=== PATIENT | female | born 1940 | race Caucasian/White ===

== ENCOUNTER 2018-08-18 07:55 | Day surgery (SDC) | payer MEDICARE, OTHER ==
[~2018-08-18] VITALS: Ht 162.6 cm; Wt 90.7 kg
[~2018-08-18 07:55] MED LIST: ALENDRONATE SOD70 MG PO; AMBIEN5 MG PO; ASPIR 8181 MG PO; ATENOLOL25 MG PO; CENTRUM SILVER1 EAC5 PO; CILOSTAZOL100 MG PO; EFFEXOR XR75 MG PO; FENOFIBRATE160 MG PO; GARLIC1000 MG PO; HYDROCHLOROTHIA25 MG PO; HYDROCODON-ACE1 EA11 PO; LIPITOR40 MG PO; MELOXICAM15 MG PO; MIRALAX17 GM PO; OXYCODONE HCL5 MG PO; PRAVASTATIN SOD40 MG PO; VITAMIN D35000 UNIT PO; XARELTO10 MG PO; ZOLPIDEM TARTRAT5 MG PO
[2018-08-18] MEDS ORDERED: VITAMIN B122500 MCG PO (08:11)
--- NOTE | 2018-08-18 10:03 | NUR ---
08/18/18 Leigha3 Atiya Wood PT TO PACU SLEEPY BUT MOVING AROUND IN BED SHE IS COUGHING AND DEEP BREATHING O2 AT 6L ON MASK
--- NOTE | 2018-08-18 10:30 | NUR ---
PT ARRIVES TO DS RM 3 FROM PACU AWAKE AND ALERT, A&O X3. PT RESP EVEN AND UNLABORED, SATS ABOVE 94% ON RA. PT DENIES ANY PAIN OR NAUSEA. SCD'S IN PLACE, CALL LIGHT WITHIN REACH. PT PROVIDED ICED WATER.
--- NOTE | 2018-08-18 12:10 | NUR ---
1130: PT HAS URGE TO VOID. WITH RN IN PT RM, PT SITS AT SIDE OF BED PRIOR TO STANDING, DENIES NAUSEA OR DIZZINESS. PT AMBULATES WITH STEADY GAIT TO BATHROOM WITH RN ASSIST. PT ABLE TO VOID 450 MLS YELLOW URINE WITH NO PROBLEMS. PT BACK TO RM AND REQUESTS TO GET DRESSED, PT DRESSES SELF. DC INSTRUCTIONS PRESENTED TO PT, ALL QUESTIONS ADDRESSED. PT CALLS FRIEND FOR RIDE HOME AND DC'S FROM RM 3 TO HOME.
--- NOTE | 2018-08-22 08:05 | OR ---
[facility] [address], [place] [address] Signed DATE OF OPERATION: 08/18/2018 SURGEON: Angelo De Paz MD PREOPERATIVE DIAGNOSIS: Right scapular subcutaneous mass (15 cm). POSTOPERATIVE DIAGNOSIS: Right scapular subcutaneous mass (15 cm). PROCEDURE PERFORMED: Excision of right scapular subcutaneous mass. ESTIMATED BLOOD LOSS: None. INDICATIONS: Jennifer is a 77-year-old female with known hypertension and peripheral arterial disease. She had been a [employer] whole life and has worked very hard. In the last year or so, she has developed mass underneath the skin over the right scapula and bra line. She said it is unbelievably how quickly it has increased in size. She said, on exam, it was up to 15 cm in diameter. It was very easy to see this underneath her shirt. In fact, her friends have been asking about her it as well. She said it is painful and it is hard to wear her bra, and every time she moves her scapula, it is causing her pain. Consequently, she was asked to come to see me and have it removed. In the office, I explained to Suzie this simply was too large to remove under local anesthetic. Consequently, we will do it over in operating room under anesthesia. I explained her the nature of the incision required to remove the lesion and we will remove it circumferentially and send it off to Pathology Department for definitive diagnosis. She understands the nature of the surgery along with its expected intraop and postop course. There is risk to surgery including, but not limited to bleeding, infection, scarring, change in contour of the skin, as well as recurrent masses in the same or other locations. She expressed understanding and wished to proceed. PROCEDURE NOTE: I met with Suzie in her preop area. We both agreed on the mass and marked that appropriately. She was then taken in the operating room and placed in the prone position with appropriate padding and monitoring under general endotracheal tube anesthesia. She was given preoperative antibiotics along with subcutaneous heparin. SCDs were utilized. She was then prepped and draped in the usual sterile fashion. A Electronically Signed By: ANGELO DE PAZ MD 08/22/18 0805 PATIENT NAME: JENNIFER KENT OPERATIVE REPORT DATE OF : 42 REPORT #: [id number] PHYSICIAN: ANGELO DE PAZ MD PCP: JUANCARLOS TURNER DO REPORT IS CONFIDENTIAL AND NOT TO BE RELEASED WITHOUT AUTHORIZATION [facility] [address], [place] [address] Signed standard transverse incision was made over the lesion and carried down around the lesion with the help of the cautery. The entire lesion was circumscribed and peeled off the underlying muscle. 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 We injected local anesthetic into the muscle as well as subcutaneous tissues. The wound was irrigated and suctioned out until clear. The dermis was reapproximated with interrupted 3-0 subcuticular Monocryl sutures. The skin edges were reapproximated with a running 6-0 fast absorbing plain gut suture. Dry gauze and tape were then applied. Suzie was then rotated into the supine position, weaned from anesthesia, extubated in the OR, and taken to recovery room in stable condition. MD NEVAEH Cardona/MODL /[id number] cc: MD Angelo Espinoza MD Frank E Szumski, DO Copies: CATALINA VEGAS MD, ANDREW L MD SZUMSKI, FRANK E DO ~ Electronically Signed By: ANGELO DE PAZ MD 08/22/18 0805 PATIENT NAME: JENNIFER KENT OPERATIVE REPORT DATE OF : 42 REPORT #: [id number] PHYSICIAN: ANGELO DE PAZ MD PCP: JUANCARLOS TURNER DO REPORT IS CONFIDENTIAL AND NOT TO BE RELEASED WITHOUT AUTHORIZATION
== END 2018-08-18 12:05 | disposition home or self-care (01) ==
LOC: DS 07:55
PROVIDERS: Colon & Rectal Surgery
PROC: 0KBF0ZZ Excision of Right Trunk Muscle, Open Approach (ICD-10-PCS; principal; 2018-08-18 08:45)
DX: L98.8 Other specified disorders of the skin and subcutaneous tissue (principal); I10 Essential (primary) hypertension; E66.9 Obesity, unspecified; F41.9 Anxiety disorder, unspecified; I25.10 Atherosclerotic heart disease of native coronary artery without angina pectoris; I73.9 Peripheral vascular disease, unspecified; F32.9 Major depressive disorder, single episode, unspecified; M19.90 Unspecified osteoarthritis, unspecified site; Z87.891 Personal history of nicotine dependence; Z88.1 Allergy status to other antibiotic agents; Z68.34 Body mass index [BMI] 34.0-34.9, adult; Z79.899 Other long term (current) drug therapy
CPT/HCPCS: 00400; J0690; J1100; J1644; J2250; J2405; J2704; J3010; J7120

== ENCOUNTER 2025-03-20 16:44 | Emergency (ER) | payer MEDICARE, OTHER ==
[~2025-03-20] VITALS: Ht 162.6 cm; Wt 89.8 kg
[~2025-03-20 16:44] MED LIST changes: +INDAPAMIDE1.25 MG PO; +LO-DOSE ASPIRIN81 MG PO; +POTASSIUM CHLO20 ME1 PO; +SYSTANE COMPLET10 ML OPTH; +VITAMIN B121000 MCG PO; +VITAMIN D3125 MC1 PO; +WARFARIN SODIUM5 MG PO
[2025-03-20 19:10] VITALS: BP 157/80
== END 2025-03-20 18:28 | disposition home or self-care (01) ==
LOC: ED 16:44
DX: R04.0 Epistaxis (principal); I10 Essential (primary) hypertension; E78.5 Hyperlipidemia, unspecified; Z79.01 Long term (current) use of anticoagulants; Z79.82 Long term (current) use of aspirin; Z79.899 Other long term (current) drug therapy; Z88.0 Allergy status to penicillin; Z88.1 Allergy status to other antibiotic agents; Z87.891 Personal history of nicotine dependence
CPT/HCPCS: 99283